=== PATIENT | male | born 1945 | race Caucasian/White ===

== ENCOUNTER 2016-02-26 13:11 | Outpatient (CLI) | payer OTHER ==
--- NOTE | 2016-02-26 13:48 | DIAGNOSTIC IMAGING REPORT ---
PROCEDURE: XR ABDOMEN 1 VIEW INDICATION: KUB TECHNIQUE: AP supine and upright views. COMPARISON: None. FINDINGS: Sigmoid volvulus. Soft tissues and osseous structures are normal. IMPRESSION: 1. Sigmoid volvulus 2. Results were called to Dr. Ureña at 01:50 p.m.
== END 2016-02-26 23:00 ==
LOC: XR SRH 13:11
DX: R10.84 Generalized abdominal pain (principal); R14.0 Abdominal distension (gaseous); K56.2 Volvulus